=== PATIENT | female | born 1990 | race African-American/Black ===

== ENCOUNTER 2019-05-14 14:51 | Emergency (ER) | payer OTHER, SELFPAY ==
[2019-05-14 17:00] LABS: Urine Blood 1+ (NEG); Urine Glucose NEGATIVE (NEG); Urine Protein NEGATIVE (NEG)
[2019-05-14 17:05] LABS: Urine Bacteria <20 /HPF (<20); Urine RBC <5 /HPF (NONE SEEN)
--- NOTE | 2019-05-14 17:08 | ER ---
Nurse's Notes [facility] Name: Deb Orosco Age: 29 yrs Sex: Female : 1990 Arrival Date: 05/14/2019 Time: 14:57 Bed 24 Private MD: Diagnosis: Viral infection, unspecified Presentation: 05/13 15:11 Chief complaint: Patient states: sharp pains to back started when she woke up yesterday iw and right shoulder started having burning pain, body aches while at work last night, temp was 99.8 , no sore throat, no cough , +chills. Coronavirus screen: The patient has NOT traveled to a country currently being monitored by the [facility] within the last 14 days. Proceed with normal triage procedures. The patient has NOT had contact with any known and/or suspected case of coronavirus. Proceed with normal triage procedures. Ebola Screen: Patient negative for fever greater than or equal to 101.5 degrees Fahrenheit, and additional compatible Ebola Virus Disease symptoms Patient denies exposure to infectious person. Patient denies travel to an Ebola-affected area in the 21 days before illness onset. No symptoms or risks identified at this time. Initial Sepsis Screen: Does the patient meet any 2 criteria? No. Patient's initial sepsis screen is negative. Does the patient have a suspected source of infection? No. Patient's initial sepsis screen is negative. Risk Assessment: Do you want to hurt yourself or someone else? Patient reports no desire to harm self or others. 15:11 Method Of Arrival: Ambulatory iw 15:11 Acuity: FADUMO 4 iw 17:28 Onset of symptoms was May 13, 2019. dw Triage Assessment: 17:28 Headache History: Denies prior headaches. General: Appears in no apparent distress. dw Behavior is calm, cooperative. Pain: Denies pain. 17:29 Pain: Also complains of back pain associated with old injury per patient. 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 - Social history:: Smoking status: Patient denies any tobacco usage or history of. Screenin:24 Abuse screen: Denies threats or abuse. Denies injuries from another. Nutritional dw screening: No deficits noted. Tuberculosis screening: No symptoms or risk factors identified. Fall Risk None identified. Assessment: 15:24 General: Appears in no apparent distress. Behavior is calm, cooperative. Pain: dw Complains of pain in back Pain Quality of pain is described as sharp, Pain began 1 day ago. Neuro: No deficits noted. Cardiovascular: No deficits noted. Respiratory: No deficits noted. GI: Reports nausea. : Reports pain in back when trying to urinate. EENT: No deficits noted. Derm: No deficits noted. Musculoskeletal: Reports history of back pain with old injury. Vital Signs: 15:11 BP 115 / 85; Pulse 62; Resp 16 S; Temp 98.1; Pulse Ox 100% on R/A; Weight 65.77 kg; iw Height 5 ft. 2 in. (157.48 cm); Pain 8/10; 17:30 BP 111 / 80; Pulse 65; Resp 18; Temp 98.7; Pulse Ox 100% ; Pain 0/10; dw 15:11 Body Mass Index 26.52 (65.77 kg, 157.48 cm) iw ED Course: 14:57 Patient arrived in ED. ag5 15:14 Triage completed. iw 15:14 Arm band placed on. iw 15:18 Yana Goldstein, RN is Primary Nurse. dw 15:24 Awaiting ED provider evaluation. dw 15:24 Patient has correct armband on for positive identification. Bed in low position. Call dw light in reach. Side rails up X 1. road engineer on. Pulse ox on. NIBP on. Door closed. Warm blanket given. 15:25 Errol Ramirez NP is PHCP. pm1 15:25 Vipin Culp MD is Attending Physician. pm1 16:05 Strep Sent. dw 16:05 Flu Sent. dw 16:44 Throat Culture Sent. dw 17:26 No provider procedures requiring assistance completed. Patient did not have IV access dw during this emergency room visit. Administered Medications: No medications were administered Outcome: 17:08 Discharge ordered by . pm1 17:26 Discharged to home ambulatory. dw 17:26 Condition: good 17:26 Discharge instructions given to patient, Instructed on discharge instructions, follow up and referral plans. medication usage, Demonstrated understanding of instructions, follow-up care, medications, Prescriptions given X none 17:31 Patient left the ED. dw Signatures: Yana Goldsteni RN RN dw Williams, Irene, RN RN iw Marinas, Patrick, KANWAL ANESTHESIA TECH pm1 Sierra Sultana ag5
--- NOTE | 2019-05-14 17:09 | EDPHYS ---
Physician Documentation [facility] Name: Deb Orosco Age: 29 yrs Sex: Female : 1990 Arrival Date: 05/14/2019 Time: 14:57 Bed 24 Private MD: ED Physician Vipin Culp HPI: 05/13 15:30 This 29 yrs old Black Female presents to ER via Ambulatory with complaints of Fever, pm1 Right Arm Pain, Headache. 15:30 The patient reports fever, that was measured at 99.8 degrees Fahrenheit. Onset: The pm1 symptoms/episode began/occurred yesterday. Modifying factors: there are no obvious modifying factors. Associated signs and symptoms: Pertinent positives: chills, headache, Body aches, Pertinent negatives: chest pain, cough, skin rash, shortness of breath, sore throat. Severity of symptoms: in the emergency department the symptoms are worse. The patient has not recently seen a physician. Patient was sent by her work here for evaluation of fever and chills. Patient's right arm pain has been ongoing since 2 years ago. The body ache and chills have made it worse. No trauma or injury to right arm. 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 - Social history:: Smoking status: Patient denies any tobacco usage or history of. ROS: 16:35 ENT: Negative for injury, pain, and discharge, Neck: Negative for injury, pain, and pm1 swelling, Cardiovascular: Negative for chest pain, palpitations, and edema, Respiratory: Negative for shortness of breath, cough, wheezing, and pleuritic chest pain, Abdomen/GI: Negative for abdominal pain, nausea, vomiting, diarrhea, and constipation, Back: Negative for injury and pain. 16:35 Skin: Negative for injury, rash, and discoloration. 16:35 Constitutional: Positive for body aches, chills, fever, Negative for poor PO intake. 16:35 MS/extremity: Positive for pain, of the right arm, Negative for injury or acute deformity, deformity, paresthesias, tingling. 16:35 Neuro: Positive for headache, Negative for dizziness, numbness, tingling, weakness. 16:35 All other systems are negative. Exam: 16:35 Constitutional: This is a well developed, well nourished patient who is awake, alert, pm1 and in no acute distress. 16:35 Head/Face: Normocephalic, atraumatic. Chest/axilla: Normal chest wall appearance and pm1 motion. Nontender with no deformity. No lesions are appreciated. Cardiovascular: Regular rate and rhythm with a normal S1 and S2. No gallops, murmurs, or rubs. No pulse deficits. Respiratory: Lungs have equal breath sounds bilaterally, clear to auscultation and percussion. No rales, rhonchi or wheezes noted. No increased work of breathing, no retractions or nasal flaring. Abdomen/GI: Soft, non-tender, with normal bowel sounds. No distension or tympany. No guarding or rebound. No evidence of tenderness throughout. Back: No spinal tenderness. No costovertebral tenderness. Full range of motion. Skin: Warm, dry with normal turgor. Normal color with no rashes, no lesions, and no evidence of cellulitis. MS/ Extremity: Pulses equal, no cyanosis. Neurovascular intact. Full, normal range of motion. 16:35 Neuro: Orientation: is normal, Motor: is normal, moves all fours. Vital Signs: 15:11 BP 115 / 85; Pulse 62; Resp 16 S; Temp 98.1; Pulse Ox 100% on R/A; Weight 65.77 kg; iw Height 5 ft. 2 in. (157.48 cm); Pain 8/10; 17:30 BP 111 / 80; Pulse 65; Resp 18; Temp 98.7; Pulse Ox 100% ; Pain 0/10; dw 15:11 Body Mass Index 26.52 (65.77 kg, 157.48 cm) iw MDM: 15:30 Patient medically screened. pm1 17:07 Data reviewed: vital signs. Data interpreted: Pulse oximetry: on room air is 100 %. pm1 Interpretation: normal. Counseling: I had a detailed discussion with the patient and/or guardian regarding: the historical points, exam findings, and any diagnostic results supporting the discharge/admit diagnosis, lab results, the need for outpatient follow up, to return to the emergency department if symptoms worsen or persist or if there are any questions or concerns that arise at home. 05/13 15:26 Order name: Flu; Complete Time: 16:50 pm1 05/13 15:26 Order name: Strep; Complete Time: 16:24 pm1 05/13 16:19 Order name: Urine Microscopic Only; Complete Time: 17:06 pm1 05/13 16:26 Order name: Urine Dipstick--Ancillary (enter results); Complete Time: 17:01 bd 05/13 16:30 Order name: Throat Culture EDND 05/13 16:19 Order name: Urine Dipstick-Ancillary (obtain specimen); Complete Time: 16:44 pm1 Administered Medications: No medications were administered Disposition: 17:45 Co-signature as Attending Physician, Vipin Culp MD. rn Disposition: 05/14/19 17:08 Discharged to Home. Impression: Viral infection, unspecified. - Condition is Stable. - Discharge Instructions: Antibiotic Resistance, Viral Respiratory Infection. - Prescriptions for Bromfed DM 2- 30-10 mg/5 mL Oral syrup - take 10 milliliter by ORAL route every 4 hours; 200 milliliter. - Work release form, Medication Reconciliation Form, Thank You Letter, Antibiotic Education, Prescription Opioid Use form. - Follow up: Emergency Department; When: As needed; Reason: Worsening of condition. Follow up: Private Physician; When: 2 - 3 days; Reason: Recheck today's complaints, Continuance of care, Re-evaluation by your physician. - Problem is new. - Symptoms have improved. Signatures: [facility] Yana Goldstein RN RN dw Williams, Irene, RN RN iw Nieto, Roman, MD MD rn Marinas, Patrick, KANWAL AIDS COUNSELOR pm1 Corrections: (The following items were deleted from the chart) 16:31 16:17 URINALYSIS+U.LAB.BRZ ordered. [facility] 17:31 17:08 05/14/2019 17:08 Discharged to Home. Impression: Viral infection, unspecified. dw Condition is Stable. Forms are Medication Reconciliation Form, Thank You Letter, Antibiotic Education, Prescription Opioid Use. Follow up: Emergency Department; When: As needed; Reason: Worsening of condition. Follow up: Private Physician; When: 2 - 3 days; Reason: Recheck today's complaints, Continuance of care, Re-evaluation by your physician. Problem is new. Symptoms have improved. pm1
[2019-05-14 18:01] VITALS: O2SAT 100
[2019-05-14 18:02] VITALS: BP 111/80; TEMP 98.7
== END 2019-05-14 17:31 | disposition home or self-care (01) ==
LOC: ER 14:51
DX: B34.9 Viral infection, unspecified (principal); Z88.1 Allergy status to other antibiotic agents
CPT/HCPCS: 81003; 81015; 87070; 87081; 87804; 99284

== ENCOUNTER 2020-07-10 18:10 | Emergency (ER) | payer SELFPAY ==
--- OUTSIDE RECORDS SUMMARY | 2020-07-10 18:13 | XMS REPORT | Continuity of Care Document ---
:1990 Author Organization [facility] t Address [address] [place] [id number] Care Team Providers Name Role Phone Unavailable Unavailable Unavailable Problems This patient has no known problems. Allergies, Adverse Reactions, Alerts This patient has no known allergies or adverse reactions. Medications This patient has no known medications. Procedures This patient has no known procedures. Encounters Start End Encounter Admission Attending Care Care Encounter Source Date/Time Date/Time Type Type Clinicians Facility Department ID 2020-02-05 2020-02-05 Emergency E [facility] [id number] [facility] 15:03:00 15:03:00 2019-11-01 2019-11-01 Emergency E [facility] [id number] [facility] 14:38:00 14:38:00 2019-08-09 2019-08-09 Emergency E [facility] [id number] [facility] 20:09:00 20:09:00 2019-07-15 2019-07-15 Emergency E [facility] [id number] [facility] 11:59:00 11:59:00 Results This patient has no known results.
--- NOTE | 2020-07-10 19:52 | ER ---
Nurse's Notes [facility] Name: Deb Orosco Age: 30 yrs Sex: Female : 1990 Arrival Date: 07/10/2020 Time: 18:15 Bed 8 Private MD: Diagnosis: Acute sinusitis Presentation: 07/10 18:39 Chief complaint: Patient states: Nasal congestion and metallic taste for a few weeks jl7 and left upper jaw pain x 1 week. Coronavirus screen: Client denies travel out of the [place] in the last 14 days. At this time, the client does not indicate any symptoms associated with coronavirus-19. Ebola Screen: No symptoms or risks identified at this time. Initial Sepsis Screen: Does the patient meet any 2 criteria? No. Patient's initial sepsis screen is negative. Does the patient have a suspected source of infection? No. Patient's initial sepsis screen is negative. Risk Assessment: Do you want to hurt yourself or someone else? Patient reports no desire to harm self or others. Onset of symptoms was April 2020. Care prior to arrival: None. 18:39 Method Of Arrival: Ambulatory jl7 18:39 Acuity: FADUMO 3 jl7 Triage Assessment: 18:41 General: Appears in no apparent distress. uncomfortable, Behavior is calm, cooperative, jl7 appropriate for age. Pain: Complains of pain in left upper jaw Pain currently is 6 out of 10 on a pain scale. 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 - Social history:: Smoking status: Patient denies any tobacco usage or history of. Screenin:25 Abuse screen: Denies threats or abuse. Nutritional screening: No deficits noted. jb4 Tuberculosis screening: No symptoms or risk factors identified. Fall Risk None identified. Assessment: 19:25 General: Appears in no apparent distress. distressed, Behavior is calm, cooperative. jb4 Pain: Complains of pain in left cheek Pain does not radiate. Pain currently is 4 out of 10 on a pain scale. Neuro: Level of Consciousness is awake, alert, obeys commands, Oriented to person, place, time, situation. Cardiovascular: Patient's skin is warm and dry. Respiratory: Airway is patent Respiratory effort is even, unlabored, Respiratory pattern is regular, symmetrical. GI: No signs and/or symptoms were reported involving the gastrointestinal system. : No signs and/or symptoms were reported regarding the genitourinary system. EENT: No signs and/or symptoms were reported regarding the EENT system. Derm: Skin is intact, Skin is dry, Skin is normal, Skin temperature is warm. Musculoskeletal: Circulation, motion, and sensation intact. Range of motion: intact in all extremities. Vital Signs: 18:39 BP 109 / 76; Pulse 75; Resp 15; Temp 98.2; Pulse Ox 100% ; Weight 65.77 kg; Height 5 jl7 ft. 2 in. (157.48 cm); 19:30 BP 110 / 73; Pulse 76; Resp 16; Pulse Ox 100% on R/A; jb4 18:39 Body Mass Index 26.52 (65.77 kg, 157.48 cm) jl7 ED Course: 18:15 Patient arrived in ED. ds1 18:41 Triage completed. jl7 18:41 Arm band placed on right wrist. jl7 19:12 Sunday Beltran PA is PHCP. cp 19:12 Vipin Culp MD is Attending Physician. cp 19:15 Winston Hassan, RN is Primary Nurse. jb4 19:25 Patient has correct armband on for positive identification. Placed in gown. Bed in low jb4 position. Call light in reach. Side rails up X 1. Pulse ox on. NIBP on. 20:07 No provider procedures requiring assistance completed. Patient did not have IV access jb4 during this emergency room visit. Administered Medications: No medications were administered Outcome: 19:51 Discharge ordered by . cp 20:07 Discharged to home ambulatory. jb4 20:07 Condition: stable 20:07 Discharge instructions given to patient, Instructed on discharge instructions, follow up and referral plans. medication usage, Demonstrated understanding of instructions, follow-up care, medications, Prescriptions given X 1. 20:08 Patient left the ED. jb4 Signatures: Chari Michael ds1 Sunday Beltran PA PA cp Bryson, James RN RN jb4 Mihaela Thurston RN RN jl7 Corrections: (The following items were deleted from the chart) 19:26 19:25 Musculoskeletal: Circulation, motion, and sensation intact. Range of motion: jb4 jb4
--- NOTE | 2020-07-10 19:52 | EDPHYS ---
Physician Documentation [facility] Name: Deb Orosco Age: 30 yrs Sex: Female : 1990 Arrival Date: 07/10/2020 Time: 18:15 Bed 8 Private MD: ED Physician Vipin Culp HPI: 07/10 19:35 This 30 yrs old Black Female presents to ER via Ambulatory with complaints of Nasal cp Congestion, Metallic Taste. 19:35 The patient or guardian reports metallic taste, nasal congestion for past "few weeks". cp Now having pain to left upper teeth for past 1 week. No fever, cough, denies headaches, denies sore throat. 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 - Social history:: Smoking status: Patient denies any tobacco usage or history of. ROS: 19:40 ENT: Positive for nasal congestion , left upper teeth pain, metallic taste in mouth, cp Negative for drainage from ear(s), ear pain, sore throat, difficulty swallowing, difficulty handling secretions. 19:40 Eyes: Negative for injury, pain, redness, and discharge. cp 19:40 Constitutional: Negative for body aches, chills, fever, poor PO intake. 19:40 Neck: Negative for pain with movement, pain at rest, stiffness. 19:40 Respiratory: Negative for cough, wheezing. 19:40 Abdomen/GI: Negative for abdominal pain, nausea, vomiting, and diarrhea. 19:40 Neuro: Negative for headache. 19:40 All other systems are negative. Exam: 19:45 Constitutional: The patient appears in no acute distress, alert, awake, non-toxic, well cp developed, well nourished. 19:45 Head/Face: Normocephalic, atraumatic. cp 19:45 Eyes: Periorbital structures: appear normal, Conjunctiva: normal, no exudate, no injection, Lids and lashes: appear normal, bilaterally. 19:45 ENT: External ear(s): are unremarkable, Ear canal(s): are normal, clear, TM's: dullness, bilaterally, Nose: is normal, Mouth: Lips: moist, Oral mucosa: moist, Posterior pharynx: Airway: no evidence of obstruction, patent. 19:45 Neck: ROM/movement: is normal, is supple, without pain, no range of motions limitations. 19:45 Chest/axilla: Inspection: normal. 19:45 Cardiovascular: Rate: normal, Rhythm: regular. 19:45 Respiratory: the patient does not display signs of respiratory distress, Respirations: normal, no use of accessory muscles, no retractions, labored breathing, is not present, Breath sounds: are clear throughout, no decreased breath sounds, no stridor, no wheezing. Vital Signs: 18:39 BP 109 / 76; Pulse 75; Resp 15; Temp 98.2; Pulse Ox 100% ; Weight 65.77 kg; Height 5 jl7 ft. 2 in. (157.48 cm); 19:30 BP 110 / 73; Pulse 76; Resp 16; Pulse Ox 100% on R/A; jb4 18:39 Body Mass Index 26.52 (65.77 kg, 157.48 cm) jl7 MDM: 19:24 Patient medically screened. cp 19:50 Differential Diagnosis: Upper Respiratory Infection Sinusitis Otitis Media Allergic cp Rhinitis. 19:50 Data reviewed: vital signs, nurses notes. Counseling: I had a detailed discussion with cp the patient and/or guardian regarding: the historical points, exam findings, and any diagnostic results supporting the discharge/admit diagnosis, to return to the emergency department if symptoms worsen or persist or if there are any questions or concerns that arise at home. Administered Medications: No medications were administered Disposition: 22:49 Co-signature as Attending Physician, Vipin Culp MD. rn Disposition: 07/10/20 19:51 Discharged to Home. Impression: Acute sinusitis. - Condition is Stable. - Discharge Instructions: Sinusitis, Adult. - Prescriptions for cefdinir 300 mg Oral capsule - take 1 capsule by ORAL route every 12 hours for 10 days; 20 capsule. - Medication Reconciliation Form, Thank You Letter, Antibiotic Education, Prescription Opioid Use form. - Follow up: Private Physician; When: 2 - 3 days; Reason: Worsening of condition. - Problem is new. - Symptoms are unchanged. Signatures: Vipin Culp MD MD rn Sunday Beltran PA PA cp Bryson, James RN RN jb4 Mihaela Thurston RN RN jl7 Corrections: (The following items were deleted from the chart) 20:08 19:51 07/10/2020 19:51 Discharged to Home. Impression: Acute sinusitis. Condition is jb4 Stable. Forms are Medication Reconciliation Form, Thank You Letter, Antibiotic Education, Prescription Opioid Use. Follow up: Private Physician; When: 2 - 3 days; Reason: Worsening of condition. Problem is new. Symptoms are unchanged. cp
[2020-07-10 20:59] VITALS: BP 109/76; TEMP 98.2; O2SAT 100
== END 2020-07-10 20:08 | disposition home or self-care (01) ==
LOC: ER 18:10
DX: J01.90 Acute sinusitis, unspecified (principal); Z88.0 Allergy status to penicillin; Z88.1 Allergy status to other antibiotic agents
CPT/HCPCS: 99283

== ENCOUNTER 2021-06-06 11:39 | Emergency (ER) | payer OTHER, SELFPAY ==
--- OUTSIDE RECORDS SUMMARY | 2021-06-06 11:43 | XMS REPORT | Continuity of Care Document ---
:1990 Author Organization [facility] t Address [address] [place] [address] Care Team Providers Name Role Phone GEN OWEN Attending Clinician Unavailable SWATI PADGETT Attending Clinician Unavailable Héctor MCBRIDE Attending Clinician Unavailable ROSA MARIA Attending Clinician Unavailable Sowmya CABEZAS Attending Clinician Unavailable Problems This patient has no known problems. Allergies, Adverse Reactions, Alerts This patient has no known allergies or adverse reactions. Medications This patient has no known medications. Procedures This patient has no known procedures. Encounters Start End Encounter Admission Attending Care Care Encounter Source Date/Time Date/Time Type Type Clinicians Facility Department ID 2020-09-10 2020-09-10 Emergency E OSCAR OWEN [facility] [id number] MHBL 09:04:00 09:59:00 REAGAN 2020-02-05 2020-02-05 Emergency E OSCAR PADGETT [facility] [id number] MHBL 15:03:00 16:02:00 MARAIWPUMA 2019-11-01 2019-11-01 Emergency E YARELIS MCBRIDE BL [facility]BL [id number] MHBL 14:38:00 15:53:00 2019-08-09 2019-08-09 Emergency E SHEEBA CRANEBL [facility]BL [id number] MHBL 20:09:00 23:44:00 FROY 2019-07-15 2019-07-15 Emergency E PEPPER CABEZAS BL [facility]BL [id number] MHBL 11:59:00 14:21:00 Results Test Description Test Time Test Comments Results Result Comments Source CHLAMYDIA, NAAT, URINE 2021-05-11 16:24:21 Test Item Value Reference Range Interpretation Comme nts CHLAMYDIA, NAAT NEGATIVE NEGATIVE IMPORTANT NOTICE: SEE ANNOUNCEMENT (test code = [place] [address]) [email or web address] Note: Assay methodolo gy is nucleic acid amplification by transcriptio n mediated amplification (TMA) utilizing the Aptima Combo 2 Assay. GONORRHEA, NAAT, [id number] 16:24:21 Test Item Value Reference Range Interpretation Comments GONORRHEA, NAAT NEGATIVE NEGATIVE IMPORTANT (test code = NOTICE: [place] [address]) [email or web address] Note: Assay methodology is nucleic acid amplification b y foreign exchange clerk mediated amplification ( TMA) utilizing the A ptima Combo 2 Assay. VAGINAL PATHOGENS DNA [id number] 14:03:54 Test Item Value Reference Range Interpretation Comments PHOEBE SPECIES (test NEGATIVE NEGATIVE code = 30584) G. VAGINALIS (test NEGATIVE NEGATIVE code = ) T. VAGINALIS (test NEGATIVE NEGATIVE UN LESS OTHERWISE code = 37691) INDICATED, ALL TESTING PERFORMED [facility] [address] [place] [address] 4 LABORATORY DIR CAROLEE: ELIZABETH HORN M.D. CLIA NUMBER [id number] CAP ACCREDITATION N O. [id number] HIV 1/2 4TH GEN, RFLX [id number] 03:51:42 Test Item Value Reference Range Interpretation Comments HIV 1/2 4TH GEN, RFLX CONF (test NON-REACTIVE NON-REACTIVE code = 3514)
--- NOTE | 2021-06-06 12:27 | EDPHYS ---
Physician Documentation [facility] Name: Deb Orosco Age: 31 yrs Sex: Female : 1990 Arrival Date: 06/06/2021 Time: 11:43 Bed 14 Private MD: MARIELA Physician Sunday Viera HPI: 06/06 12:21 This 31 yrs old Black Female presents to ER via Ambulatory with complaints of Jaw Pain, loretta Bleeding Gums, Toothache. 12:21 The patient presents with broken tooth/teeth, redness, swelling. The problem is located loretta in the upper right second bicuspid. Onset: The symptoms/episode began/occurred 3 day(s) ago. Duration: The symptoms are continuous, and are steadily getting worse. Modifying factors: The symptoms are alleviated by over the counter medications, NSAIDs, the symptoms are aggravated by chewing, cold fluids. Associated signs and symptoms: The patient has no apparent associated signs or symptoms. The patient has not experienced similar symptoms in the past. Historical: - Allergies: 11:58 Bactrim; ab2 11:58 Levaquin; ab2 11:58 PENICILLINS; ab2 - PMHx: 11:58 None; ab2 - PSHx: 11:58 None; ab2 - Immunization history:: Adult Immunizations up to date. - Social history:: Smoking status: Patient denies any tobacco usage or history of. - Family history:: not pertinent. ROS: 12:21 Constitutional: Negative for fever, chills, and weight loss, Eyes: Negative for injury, loretta pain, redness, and discharge, Neck: Negative for injury, pain, and swelling, Cardiovascular: Negative for chest pain, palpitations, and edema, Respiratory: Negative for shortness of breath, cough, wheezing, and pleuritic chest pain, Abdomen/GI: Negative for abdominal pain, nausea, vomiting, diarrhea, and constipation, Back: Negative for injury and pain, : Negative for injury, bleeding, discharge, and swelling, MS/Extremity: Negative for injury and deformity, Skin: Negative for injury, rash, and discoloration, Neuro: Negative for headache, weakness, numbness, tingling, and seizure. 12:21 ENT: Positive for Gum pain Exam: 12:21 Constitutional: This is a well developed, well nourished patient who is awake, alert, loretta and in no acute distress. Head/Face: Normocephalic, atraumatic. Eyes: Pupils equal round and reactive to light, extra-ocular motions intact. Lids and lashes normal. Conjunctiva and sclera are non-icteric and not injected. Cornea within normal limits. Periorbital areas with no swelling, redness, or edema. Neck: Trachea midline, no thyromegaly or masses palpated, and no cervical lymphadenopathy. Supple, full range of motion without nuchal rigidity, or vertebral point tenderness. No Meningismus. Chest/axilla: Normal chest wall appearance and motion. Nontender with no deformity. No lesions are appreciated. Cardiovascular: Regular rate and rhythm with a normal S1 and S2. No gallops, murmurs, or rubs. Normal PMI, no JVD. No pulse deficits. Respiratory: Lungs have equal breath sounds bilaterally, clear to auscultation and percussion. No rales, rhonchi or wheezes noted. No increased work of breathing, no retractions or nasal flaring. Abdomen/GI: Soft, non-tender, with normal bowel sounds. No distension or tympany. No guarding or rebound. No evidence of tenderness throughout. Back: No spinal tenderness. No costovertebral tenderness. Full range of motion. Skin: Warm, dry with normal turgor. Normal color with no rashes, no lesions, and no evidence of cellulitis. MS/ Extremity: Pulses equal, no cyanosis. Neurovascular intact. Full, normal range of motion. Neuro: Awake and alert, GCS 15, oriented to person, place, time, and situation. Cranial nerves II-XII grossly intact. Motor strength 5/5 in all extremities. Sensory grossly intact. Cerebellar exam normal. Normal gait. Psych: Awake, alert, with orientation to person, place and time. Behavior, mood, and affect are within normal limits. 12:21 ENT: Mouth: Oral mucosa: moist, Gums: bleeding, noted to have cellulitis, reddened, on the upper right second bicuspid, Dental exam: cellulitis, that is mild, dental caries, fractured teeth are noted. Vital Signs: 11:58 BP 109 / 68; Pulse 73; Resp 16; Temp 98.7(TE); Pulse Ox 99% on R/A; Weight 65.77 kg; ab2 Height 5 ft. 2 in. (157.48 cm); Pain 8/10; 13:01 BP 111 / 62; Pulse 70; Resp 18; Pulse Ox 100% ; jh6 11:58 Body Mass Index 26.52 (65.77 kg, 157.48 cm) ab2 MDM: 12:02 Patient medically screened. loretta 12:24 Differential diagnosis: dental caries, gingivitis, dental abscess. Data reviewed: vital loretta signs, nurses notes. 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 rate is 73 beats/min, rhythm is regular, Pulse oximetry: on room air is 99 %. Counseling: I had a detailed discussion with the patient and/or guardian regarding: the historical points, exam findings, and any diagnostic results supporting the discharge/admit diagnosis, the need for outpatient follow up, for definitive care, a dentist, an oral maxilofacial specialist. Administered Medications: 12:47 Drug: Clindamycin 600 mg Route: IM; Site: left gluteus; jh6 13:04 Follow up: Response: No adverse reaction [facility] 12:47 Drug: Clindamycin 300 mg Route: PO; jh6 13:04 Follow up: Response: No adverse reaction 6 12:47 Drug: Motrin (ibuprofen) 600 mg Route: PO; jh6 13:03 Follow up: Response: No adverse reaction jh6 Disposition Summary: 06/06/21 12:26 Discharge Ordered Location: Home loretta Problem: new loretta Symptoms: have improved loretta Condition: Stable loretta Diagnosis - Dental caries, unspecified loretta - Fracture of tooth (traumatic) loretta - Acute gingivitis loretta Followup: loretta - With: Private Physician - When: 2 - 3 days - Reason: Recheck today's complaints, Continuance of care, Re-evaluation by your physician Followup: loretta - With: Franki Duron DDS - When: 2 - 3 days - Reason: Recheck today's complaints, Continuance of care, Re-evaluation by your physician Discharge Instructions: - Discharge Summary Sheet loretta - Dental Caries, Adult loretta - Dental Pain loretta - Dental Pain, [id number] loretta - Diet and Dental Disease loretta - Dental Caries, Adult, [id number] loretta Forms: - Medication Reconciliation Form loretta - Thank You Letter loretta - Antibiotic Education loretta - Prescription Opioid Use loretta Prescriptions: - Clindamycin HCl 300 mg Oral Capsule - take 1 capsule by ORAL route every 6 hours for 7 days; 28 capsule; Refills: 0, [facility] Product Selection Permitted - Tylenol-Codeine #3 300 mg-30 mg Oral - take 2 tablet by ORAL route every 6 hours; 20 tablet; Refills: 0, Product [facility] Selection Permitted Signatures: Sunday Viera, Chantal Fraire MD, cha, RN RN jh6 Lester Lim
--- NOTE | 2021-06-06 12:27 | ER ---
Nurse's Notes [facility] Name: Deb Orosco Age: 31 yrs Sex: Female : 1990 Arrival Date: 06/06/2021 Time: 11:43 Bed 14 Private MD: Diagnosis: Dental caries, unspecified;Fracture of tooth (traumatic);Acute gingivitis Presentation: 06/06 11:56 Chief complaint: Patient states: "I had tooth break off a couple weeks ago and a few ab2 days ago it started hurting but its getting worse. I have a bad headache. Aleve and Advil are not helping.". Coronavirus screen: Vaccine status: Patient reports being unvaccinated. Client denies travel out of the [place] in the last 14 days. At this time, the client does not indicate any symptoms associated with coronavirus-19. Ebola Screen: Patient negative for fever greater than or equal to 101.5 degrees Fahrenheit, and additional compatible Ebola Virus Disease symptoms Patient denies exposure to infectious person. Patient denies travel to an Ebola-affected area in the 21 days before illness onset. No symptoms or risks identified at this time. Initial Sepsis Screen: Does the patient meet any 2 criteria? No. Patient's initial sepsis screen is negative. Does the patient have a suspected source of infection? No. Patient's initial sepsis screen is negative. Risk Assessment: Do you want to hurt yourself or someone else? Patient reports no desire to harm self or others. Onset of symptoms is unknown. 11:56 Method Of Arrival: Ambulatory ab2 11:56 Acuity: FADUMO 4 ab2 Triage Assessment: 11:57 General: Appears in no apparent distress. uncomfortable, Behavior is calm, cooperative, ab2 appropriate for age. Pain: Complains of pain in right jaw Pain currently is 8 out of 10 on a pain scale. EENT: No deficits noted. Reports pain in right jaw. Neuro: No deficits noted. 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 Gait is steady, Speech is normal, Facial symmetry appears normal, Reports headache. Cardiovascular: No deficits noted. Denies chest pain, shortness of breath, Patient's skin is warm and dry. Respiratory: Airway is patent Respiratory effort is even, unlabored, Respiratory pattern is regular, symmetrical. GI: No deficits noted. No signs and/or symptoms were reported involving the gastrointestinal system. : No deficits noted. No signs and/or symptoms were reported regarding the genitourinary system. Historical: - Allergies: 11:58 Bactrim; ab2 11:58 Levaquin; ab2 11:58 PENICILLINS; ab2 - PMHx: 11:58 None; ab2 - PSHx: 11:58 None; ab2 - Immunization history:: Adult Immunizations up to date. - Social history:: Smoking status: Patient denies any tobacco usage or history of. - Family history:: not pertinent. Screenin:20 Abuse screen: Denies threats or abuse. jh6 12:20 Nutritional screening: No deficits noted. Tuberculosis screening: No symptoms or risk [facility] factors identified. Fall Risk None identified. Assessment: 12:20 General: Appears in no apparent distress. distressed, Behavior is calm, cooperative. 6 12:20 General:. Pain: Complains of pain in right cheek and right zygomatic area Quality of jh6 pain is described as aching, throbbing, Pain began 1 day ago. Is continuous, Alleviated by. 13:01 Reassessment: No changes from previously documented assessment. pt reports that she has 6 had clindamycin prior without allergic reaction. verbal understanding of d/c instructions and meds. Vital Signs: 11:58 BP 109 / 68; Pulse 73; Resp 16; Temp 98.7(TE); Pulse Ox 99% on R/A; Weight 65.77 kg; ab2 Height 5 ft. 2 in. (157.48 cm); Pain 8/10; 13:01 BP 111 / 62; Pulse 70; Resp 18; Pulse Ox 100% ; jh6 11:58 Body Mass Index 26.52 (65.77 kg, 157.48 cm) ab2 ED Course: 11:43 Patient arrived in ED. jj6 11:57 Triage completed. ab2 11:59 Arm band placed on right wrist. ab2 12:02 Sunday Viera MD is Attending Physician. [facility] 12:20 Bed in low position. Call light in reach. Side rails up X 1. jh6 12:20 No provider procedures requiring assistance completed. jh6 12:20 Patient did not have IV access during this emergency room visit. [facility] 12:25 Franki Duron DDS is Referral Physician. loretta 12:28 Chantal Doe, RN is Primary Nurse. 6 Administered Medications: 12:47 Drug: Clindamycin 600 mg Route: IM; Site: left gluteus; [facility] 13:04 Follow up: Response: No adverse reaction [facility] 12:47 Drug: Clindamycin 300 mg Route: PO; 6 13:04 Follow up: Response: No adverse reaction [facility] 12:47 Drug: Motrin (ibuprofen) 600 mg Route: PO; [facility] 13:03 Follow up: Response: No adverse reaction [facility] Outcome: 12:26 Discharge ordered by . loretta 13:03 Discharged to home ambulatory. [facility] 13:03 Condition: stable 13:03 Discharge instructions given to patient, Instructed on discharge instructions, follow up and referral plans. Demonstrated understanding of instructions, follow-up care, medications, Prescriptions given X 2. 13:18 Patient left the ED. [facility] Signatures: Sunday Viera MD MD cha Jeffries, Jennifer jj6 Chantal Doe, RN RN [facility] Lester Lim ab2
[2021-06-06] MEDS ORDERED: IBUPROFEN 200 MG TAB PO ONE (12:35)
[2021-06-06] MEDS ORDERED: CLINDAMYCIN IV 150 MG/ML (4 mL) VIAL ONE ×2 (12:36)
[2021-06-06 13:55] VITALS: TEMP 98.7
[2021-06-06 13:56] VITALS: BP 111/62; O2SAT 100
== END 2021-06-06 13:18 | disposition home or self-care (01) ==
LOC: ER 11:39
DX: S02.5XXA Fracture of tooth (traumatic), initial encounter for closed fracture (principal); X58.XXXA Exposure to other specified factors, initial encounter; K02.9 Dental caries, unspecified; K05.00 Acute gingivitis, plaque induced; Z88.0 Allergy status to penicillin; Z88.6 Allergy status to analgesic agent; Z88.1 Allergy status to other antibiotic agents
CPT/HCPCS: 96372; 99283; S0077 ×2

== ENCOUNTER 2022-03-11 08:04 | Emergency (ER) | payer BC, OTHER ==
--- OUTSIDE RECORDS SUMMARY | 2022-03-11 08:12 | XMS REPORT | Continuity of Care Document ---
:1990 Author Organization [facility] t Address [address] [place] [address] Care Team Providers Name Role Phone SHERRIE MITCHELL Attending Clinician Unavailable REAGAN OWEN Attending Clinician Unavailable BERNADETTE PADGETT Attending Clinician Unavailable YARELIS MCBRIDE Attending Clinician Unavailable FROY CRANE Attending Clinician Unavailable PEPPER CABEZAS Attending Clinician Unavailable Payers Payer Name Policy Type Policy Number Effective Date Expiration Date S genet [facility] 2 [id number] 2021 00:00:00 Problems This patient has no known problems. Allergies, Adverse Reactions, Alerts This patient has no known allergies or adverse reactions. Medications This patient has no known medications. Procedures This patient has no known procedures. Encounters Start End Encounter Admission Attending Care Care Encounter Source Date/Time Date/Time Type Type Clinicians Facility Department ID 2022-02-08 2022-02-08 Outpatient VIRIDIANA MITCHELL [id number] [address] [place] 08:45:00 08:45:00 SHERRIE connolly 2020-09-10 2020-09-10 Emergency E OSCAR OWEN [id number] 09:04:00 09:59:00 REAGAN 2020-02-05 2020-02-05 Emergency E OSCAR PADGETTBL [id number] 15:03:00 16:02:00 BERNADETTE 2019-11-01 2019-11-01 Emergency E YARELIS MCBRIDE [facility]BL [id number] [facility]BL 14:38:00 15:53:00 2019-08-09 2019-08-09 Emergency E ROSA MARIA [facility] [id number] [facility] 20:09:00 23:44:00 FROY 2019-07-15 2019-07-15 Emergency E PEPPER CABEZAS [facility] [id number] [facility] 11:59:00 14:21:00 Results Test Description Test Time Test Comments Results Result Comments Source VAGINAL PATHOGENS DNA PANEL 2021-06-30 15:34:55 Test Item Value Reference Range Interpretation Comme nts PHOEBE SPECIES (test code = NEGATIVE NEGATIVE ) G. VAGINALIS (test code = NEGATIVE NEGATIVE ) T. VAGINALIS (test code = NEGATIVE NEGATIVE U NLESS OTHERWISE INDICATED, ALL ) TESTING PERFORM ED ATCLINICAL PATHOLOGY [facility] [address] [place] [address] LABORATORY DIRE CTOR: Nadeem AHN NUMBER [id number] [place] [id number] CHLAMYDIA, NAAT, [id number] 16:24:21 Test Item Value Reference Range Interpretation Comments CHLAMYDIA, NAAT NEGATIVE NEGATIVE IMPORTA NT NOTICE: SEE (test code = [place] [address]) [email or web address] Note: Assay methodology is nucleic acid amplification b y geriatric care manager m ediated amplification ( TMA) utilizing the A ptima Combo 2 Assay. GONORRHEA, NAAT, [id number] 16:24:21 Test Item Value Reference Range Interpretation Comments GONORRHEA, NAAT NEGATIVE NEGATIVE IMPORTA NT NOTICE: SEE (test code = [place] [address]) [email or web address] Note: Assay methodology is nucleic acid amplification b y geriatric care manager m ediated amplification ( TMA) utilizing the A ptima Combo 2 Assay. VAGINAL PATHOGENS DNA [id number] 14:03:54 Test Item Value Reference Range Interpretation Comments PHOEBE SPECIES (test NEGATIVE NEGATIVE code = ) G. VAGINALIS (test NEGATIVE NEGATIVE code = ) T. VAGINALIS (test NEGATIVE NEGATIVE UNLESS O THERWISE code = 56769) INDICATED, ALL TESTING PERFORMED ATCLI NICAL PATHOLOGY [facility] [address] [place], [place] [address] LABORATORY DIRE CTOR: Nadeem ALCANTARA NUMBER [id number] [place]. [id number] HIV 1/2 4TH GEN, RFLX [id number] 03:51:42 Test Item Value Reference Range Interpretation Comments HIV 1/2 4TH GEN, RFLX CONF (test NON-REACTIVE NON-REACTIVE code = 3514)
--- NOTE | 2022-03-11 09:38 | EDPHYS ---
Physician Documentation [facility] Name: Deb Orosco Age: 31 yrs Sex: Female : 1990 Arrival Date: 03/11/2022 Time: 08:06 Bed 10 Private MD: MARIELA Physician Sunday Viera HPI: 03/11 09:26 This 31 yrs old Black Female presents to ER via Ambulatory with complaints of Mouth loretta Problem, Nausea, Weakness, Nose Pain. 09:26 The patient presents with pain, swelling. The problem is located in the lower left loretta third molar. Onset: The symptoms/episode began/occurred 3 day(s) ago. Duration: The symptoms are continuous, and are steadily getting worse. Modifying factors: The symptoms are alleviated by nothing, the symptoms are aggravated by chewing, food. Associated signs and symptoms: The patient has no apparent associated signs or symptoms. Severity of symptoms: At their worst the symptoms were mild, in the emergency department the symptoms are unchanged. The patient has not experienced similar symptoms in the past. Historical: - Allergies: 08:19 Bactrim; aa5 08:19 Levaquin; aa5 08:19 PENICILLINS; aa5 - PMHx: 08:19 None; aa5 - PSHx: 08:19 Back cyst removed; aa5 - Immunization history:: Adult Immunizations unknown. - Social history:: Smoking status: Patient denies any tobacco usage or history of. - Family history:: not pertinent. ROS: 09:26 Constitutional: Negative for fever, chills, and weight loss, Eyes: Negative for injury, loretta pain, redness, and discharge, Neck: Negative for injury, pain, and swelling, Cardiovascular: Negative for chest pain, palpitations, and edema, Respiratory: Negative for shortness of breath, cough, wheezing, and pleuritic chest pain, Abdomen/GI: Negative for abdominal pain, nausea, vomiting, diarrhea, and constipation, Back: Negative for injury and pain, : Negative for injury, bleeding, discharge, and swelling, MS/Extremity: Negative for injury and deformity, Skin: Negative for injury, rash, and discoloration, Neuro: Negative for headache, weakness, numbness, tingling, and seizure, Psych: Negative for depression, anxiety, suicide ideation, homicidal ideation, and hallucinations, Allergy/Immunology: Negative for hives, rash, and allergies, Endocrine: Negative for neck swelling, polydipsia, polyuria, polyphagia, and marked weight changes, Hematologic/Lymphatic: Negative for swollen nodes, abnormal bleeding, and unusual bruising. 09:26 ENT: Positive for Teeth pain Exam: 09:26 Constitutional: This is a well developed, well nourished patient who is awake, alert, loretta and in no acute distress. Head/Face: Normocephalic, atraumatic. Eyes: Pupils equal round and reactive to light, extra-ocular motions intact. Lids and lashes normal. Conjunctiva and sclera are non-icteric and not injected. Cornea within normal limits. Periorbital areas with no swelling, redness, or edema. Neck: Trachea midline, no thyromegaly or masses palpated, and no cervical lymphadenopathy. Supple, full range of motion without nuchal rigidity, or vertebral point tenderness. No Meningismus. Chest/axilla: Normal chest wall appearance and motion. Nontender with no deformity. No lesions are appreciated. Cardiovascular: Regular rate and rhythm with a normal S1 and S2. No gallops, murmurs, or rubs. Normal PMI, no JVD. No pulse deficits. Respiratory: Lungs have equal breath sounds bilaterally, clear to auscultation and percussion. No rales, rhonchi or wheezes noted. No increased work of breathing, no retractions or nasal flaring. Abdomen/GI: Soft, non-tender, with normal bowel sounds. No distension or tympany. No guarding or rebound. No evidence of tenderness throughout. Back: No spinal tenderness. No costovertebral tenderness. Full range of motion. Skin: Warm, dry with normal turgor. Normal color with no rashes, no lesions, and no evidence of cellulitis. MS/ Extremity: Pulses equal, no cyanosis. Neurovascular intact. Full, normal range of motion. Neuro: Awake and alert, GCS 15, oriented to person, place, time, and situation. Cranial nerves II-XII grossly intact. Motor strength 5/5 in all extremities. Sensory grossly intact. Cerebellar exam normal. Normal gait. Psych: Awake, alert, with orientation to person, place and time. Behavior, mood, and affect are within normal limits. 09:26 ENT: Nose: is normal, Mouth: Oral mucosa: normal, Gums: normal with healthy appearance, Posterior pharynx: no acute changes, Airway: normal, no evidence of obstruction, Uvula: normal, swelling, is not appreciated, erythema, is not appreciated, Dental exam: dental caries, that is mild, specifically in the upper left third molar (#16), lower left third molar (#17) and lower right third molar (#32), gum swelling, that is mild. Vital Signs: 08:17 BP 114 / 87; Pulse 79; Resp 16 S; Temp 97.3(TE); Pulse Ox 98% on R/A; Weight 68.04 kg aa5 (R); Height 5 ft. 2 in. (157.48 cm) (R); 08:17 Body Mass Index 27.44 (68.04 kg, 157.48 cm) aa5 MDM: 08:23 Patient medically screened. loretta 08:23 Patient medically screened. loretta 09:37 Differential diagnosis: dental caries, gingivitis, dental abscess. Data reviewed: vital loretta signs, nurses notes. Consideration of Admission/Observation Patient was admitted/placed on observation. Escalation of care including admission/observation considered. I considered the following discharge prescriptions or medication management in the emergency department Medications were administered in the Emergency Department. See MAR. Test considered but Not performed: X-ray: panorex. Care significantly affected by the following chronic conditions: dental. Administered Medications: 09:39 Drug: Clindamycin 300 mg Route: PO; aa5 09:39 Follow up: Response: Medication administered at discharge. aa5 09:39 Drug: Motrin (ibuprofen) 600 mg Route: PO; aa5 09:39 Follow up: Response: Medication administered at discharge. aa5 Disposition Summary: 03/11/22 09:38 Discharge Ordered Location: Home loretta Problem: new loretta Symptoms: have improved loretta Condition: Stable loretta Diagnosis - Dental caries, unspecified loretta - Dental root caries loretta Followup: loretta - With: Private Physician - When: 2 - 3 days - Reason: Recheck today's complaints, Continuance of care, Re-evaluation by your physician Followup: loretta - With: Franki Duron DDS - When: 2 - 3 days - Reason: Recheck today's complaints, Continuance of care, Re-evaluation by your physician Discharge Instructions: - Discharge Summary Sheet loretta - Dental Caries, Adult loretta - Dental Pain loretta - Dental Pain, [id number] loretta - Diet and Dental Disease loretta Forms: - Medication Reconciliation Form loretta - Thank You Letter loretta - Antibiotic Education loretta - Prescription Opioid Use loretta - Work release form aa5 Prescriptions: - Clindamycin HCl 300 mg Oral Capsule - take 1 capsule by ORAL route every 6 hours for 7 days; 28 capsule; Refills: 0, [facility] Product Selection Permitted - Ibuprofen 600 mg Oral Tablet - take 1 tablet by ORAL route every 6 hours As needed take with food; 2 tablet; [facility] Refills: 0, Product Selection Permitted Signatures: Sunday Viera MD MD cha Calderon, Audri RN RN aa5 Corrections: (The following items were deleted from the chart) 08:20 08:19 PSHx: None; aa5 aa5
--- NOTE | 2022-03-11 09:38 | ER ---
Nurse's Notes [facility] Name: Deb Orosco Age: 31 yrs Sex: Female : 1990 Arrival Date: 03/11/2022 Time: 08:06 Bed 10 Private MD: Diagnosis: Dental caries, unspecified;Dental root caries Presentation: 03/11 08:17 Chief complaint: Patient states: "about 2 days ago I started having mouth pain and I aa5 thought it was my tooth". Pt states "now I feel tired, I have a headache, and some nausea". Coronavirus screen: fatigue, nausea. Ebola Screen: Patient denies travel to an Ebola-affected area in the 21 days before illness onset. Initial Sepsis Screen: Does the patient meet any 2 criteria? No. Patient's initial sepsis screen is negative. Does the patient have a suspected source of infection? No. Patient's initial sepsis screen is negative. Risk Assessment: Do you want to hurt yourself or someone else? Patient reports no desire to harm self or others. Onset of symptoms was February 2022. 08:17 Method Of Arrival: Ambulatory aa5 08:17 Acuity: FADUMO 4 aa5 Historical: - Allergies: 08:19 Bactrim; aa5 08:19 Levaquin; aa5 08:19 PENICILLINS; aa5 - PMHx: 08:19 None; aa5 - PSHx: 08:19 Back cyst removed; aa5 - Immunization history:: Adult Immunizations unknown. - Social history:: Smoking status: Patient denies any tobacco usage or history of. - Family history:: not pertinent. Assessment: 09:42 Neuro: Level of Consciousness is awake, alert, obeys commands, Oriented to person, aa5 place, time, situation. Respiratory: Airway is patent Respiratory effort is even, unlabored, Respiratory pattern is regular, symmetrical. Derm: Skin is dry, Skin is normal, Skin temperature is warm. Vital Signs: 08:17 BP 114 / 87; Pulse 79; Resp 16 S; Temp 97.3(TE); Pulse Ox 98% on R/A; Weight 68.04 kg aa5 (R); Height 5 ft. 2 in. (157.48 cm) (R); 08:17 Body Mass Index 27.44 (68.04 kg, 157.48 cm) aa5 ED Course: 08:06 Patient arrived in ED. as 08:17 Arm band placed on. aa5 08:19 Triage completed. aa5 08:23 Sunday Viera MD is Attending Physician. loretta 09:02 Mihaela Thurston, RN is Primary Nurse. [email or web address] 09:38 Franki Duron DDS is Referral Physician. loretta 09:42 No provider procedures requiring assistance completed. Patient did not have IV access aa5 during this emergency room visit. Administered Medications: 09:39 Drug: Clindamycin 300 mg Route: PO; aa5 09:39 Follow up: Response: Medication administered at discharge. aa5 09:39 Drug: Motrin (ibuprofen) 600 mg Route: PO; aa5 09:39 Follow up: Response: Medication administered at discharge. aa5 Medication: 09:42 VIS not applicable for this client. aa5 Outcome: 09:38 Discharge ordered by . loretta 09:42 Discharged to home ambulatory. aa5 09:42 Condition: stable 09:42 Discharge instructions given to patient, Instructed on discharge instructions, follow up and referral plans. medication usage, Demonstrated understanding of instructions, follow-up care, medications, Prescriptions given X 2. 09:44 Patient left the ED. aa5 Signatures: Sunday Viera MD MD cha Martinez, Amelia as Calderon, Audri, RN RN aa5 Mihaela Thurston, KUSUM RN jl7 Corrections: (The following items were deleted from the chart) 08:20 08:19 PSHx: None; aa5 aa5
[2022-03-11] MEDS ORDERED: IBUPROFEN 400 MG TAB ONE (09:39)
[2022-03-11] MEDS ORDERED: IBUPROFEN 200 MG TAB PO ONE (09:40)
[2022-03-11 10:09] VITALS: BP 114/87; TEMP 97.3; O2SAT 98
== END 2022-03-11 09:44 | disposition home or self-care (01) ==
LOC: ER 08:04
DX: K02.7 Dental root caries (principal); K02.9 Dental caries, unspecified; Z88.0 Allergy status to penicillin; Z88.1 Allergy status to other antibiotic agents
CPT/HCPCS: 99283